=== PATIENT | female | born 1980 | race American Indian/Alaskan Native ===

== ENCOUNTER 2023-06-11 15:17 | Emergency (ER) | payer OTHER ==
[~2023-06-11] VITALS: Ht 162.6 cm; Wt 54.4 kg
[2023-06-11] MEDS ORDERED: OLANZAPINE 5 MG TABLET PO ONE ×2 (16:15→17:45)
[2023-06-11] MEDS ORDERED: OLANZAPINE 5 MG TABLET ONE ×2 (16:20→17:40)
[2023-06-11] MEDS ORDERED: OLAN5TAB3 PO (16:22)
[2023-06-11 16:29] LABS: BASOPHILS # (AUTO) 0.1 K/UL (0.0-0.2); BASOPHILS % (AUTO) 0.8 % (0.0-2.0); EOSINOPHILS % (AUTO) 0.4 % (0.0-7.0); HEMATOCRIT 37.2 % (31.2-41.9); HEMOGLOBIN 12.5 g/dL (10.9-14.3); LYMPHOCYTES # (AUTO) 2.2 K/uL (0.8-4.8); MEAN CORPUSCULAR HEMOGLOBIN 30.4 uug (24.7-32.8); MEAN CORPUSCULAR HGB CONC 34 g/dL (32.3-35.6); MEAN CORPUSCULAR VOLUME 90.9 fL (75.5-95.3); MONOCYTES # (AUTO) 0.4 K/uL (0.1-1.30); MONOCYTES % (AUTO) 4.9 % (0.0-11.0); NEUTROPHILS # (AUTO) 4.8 K/uL (1.8-8.9); NEUTROPHILS % (AUTO) 64.9 % (38.5-71.5); PLATELET COUNT (AUTO) 345 K/uL (179-408); RED CELL DISTRIBUTION WIDTH 14.4 % (12.3-17.7); WHITE BLOOD COUNT (AUTO) 7.5 K/uL (3.8-11.8)
[2023-06-11 16:38] LABS: CALCIUM 8.6 mg/dL (8.5-10.1); CARBON DIOXIDE 28 mmol/L (21-32); CHLORIDE 104 mmol/L (98-107); GLUCOSE 91 mg/dL (74-106); POTASSIUM 4.1 mmol/L (3.5-5.1); SODIUM SERUM 142 mmol/L (136-145); UREA NITROGEN, BLOOD 12 mg/dL (7-18)
[2023-06-11 16:39] LABS: *BILIRUBIN,URIN NEGATIVE (NEGATIVE); *BLOOD, URINE 1+ (NEGATIVE); *CLARITY,URINE CLOUDY (CLEAR); *COLOR,URINE YELLOW (YELLOW); *KETONES,URINE NEGATIVE (NEGATIVE); *PROTEIN,URINE NEGATIVE (NEGATIVE); *UROBILINOGEN,URINE 0.2 E.U./dl (NORMAL); LEUKOCYTE ESTERASE ,URINE NEGATIVE (NEGATIVE); NITRITE, URINE NEGATIVE (NEGATIVE); UGLUCOSE NEGATIVE (NEGATIVE)
[2023-06-11 16:42] LABS: ACETAMINOPHEN < 2.0 ug/mL (10-30)
[2023-06-11 16:44] LABS: ETHANOL < 3 MG/DL (0-10)
[2023-06-11 16:47] LABS: DIFFERENTIAL COMMENT 1
[2023-06-11 17:01] LABS: *AMPHETAMINE, URINE NEGATIVE (NEGATIVE); *BARBITURATE, URINE NEGATIVE (NEGATIVE); *BENZODIAZEPINE, URINE NEGATIVE (NEGATIVE); *CANNABINOID, URINE POSITIVE (NEGATIVE); *COCCAINE, URINE NEGATIVE (NEGATIVE); *OPIATE, URINE NEGATIVE (NEGATIVE); *PHENCYCLIDINE SCREEN,URINE NEGATIVE (NEGATIVE)
[2023-06-11 17:08] LABS: ALANINE AMINOTRANSFERASE 15 U/L (14-59); ALBUMIN 3.8 g/dL (3.4-5.0); ALKALINE PHOSPHATASE 63 U/L (50-136); ASPARTATE AMINOTRANSFERASE 10 U/L (15-37); BILIRUBIN,TOTAL 0.2 mg/dL (0.2-1.0); MAGNESIUM 2.1 mg/dL (1.8-2.4); TOTAL PROTEIN, SERUM 7.1 g/dL (6.4-8.2)
[2023-06-11 17:10] LABS: BILIRUBIN,DIRECT < 0.1 mg/dL (0.0-0.2)
[2023-06-11] MEDS ORDERED: MECO10006 IM (17:23)
[2023-06-11] MEDS ORDERED: SYRI-29 MC (17:23)
[2023-06-11 17:28] LABS: FENTANYL, URINE NEGATIVE (NEGATIVE)
[2023-06-11] MEDS ORDERED: CYANOCOBALAMIN 1000 MCG/ML VIAL ONE (17:28)
[2023-06-11] MEDS ORDERED: CYANOCOBALAMIN 1000 MCG/ML VIAL IM ONE (17:30)
[2023-06-11 18:11] VITALS: BP 130/70; TEMP 98; O2SAT 99
== END 2023-06-11 18:02 | disposition home or self-care (01) ==
LOC: ER 15:19
DX: F41.9 Anxiety disorder, unspecified (principal); E53.8 Deficiency of other specified B group vitamins; F20.9 Schizophrenia, unspecified; F31.9 Bipolar disorder, unspecified; Z79.899 Other long term (current) drug therapy
CPT/HCPCS: 80076; 80048; 81001; 82607; 83735; 85025; 36415; 99283; 96372; 80299; 80320; 80307; J3420; A4606; A4663; G0480

== ENCOUNTER 2023-07-03 04:04 | Emergency (ER) | payer OTHER ==
[~2023-07-03] VITALS: Ht 167.6 cm; Wt 54.4 kg
[~2023-07-03 04:04] MED LIST: MECO10006 IM; OLAN5TAB3 PO; SYRI-29 MC
[2023-07-03] MEDS ORDERED: ONDANSETRON HCL 4 MG TABLET ONE (04:21)
[2023-07-03] MEDS ORDERED: ONDA4TAB5 PO (04:23)
[2023-07-03] MEDS: ONDANSETRON ODT 4 MG TAB.RAPDIS SL ONE (04:27)
[2023-07-03 04:38] VITALS: BP 119/70; O2SAT 100
== END 2023-07-03 04:39 | disposition home or self-care (01) ==
LOC: ER 04:07
DX: F10.129 Alcohol abuse with intoxication, unspecified (principal); F31.9 Bipolar disorder, unspecified; F20.9 Schizophrenia, unspecified; Z79.899 Other long term (current) drug therapy; Y90.9 Presence of alcohol in blood, level not specified
CPT/HCPCS: A4606; A4663; Q0162

== ENCOUNTER 2023-09-12 16:28 | Emergency (ER) | payer OTHER ==
[~2023-09-12] VITALS: Ht 162.6 cm; Wt 56.7 kg
[~2023-09-12 16:28] MED LIST changes: +ONDA4TAB5 PO
[2023-09-12] MEDS ORDERED: NALO4SPR BNOSTRILS (17:06)
[2023-09-12 17:14] VITALS: BP 139/88; O2SAT 98
== END 2023-09-12 17:15 | disposition home or self-care (01) ==
LOC: ER 16:32
DX: F41.9 Anxiety disorder, unspecified (principal); T43.615A Adverse effect of caffeine, initial encounter; F20.9 Schizophrenia, unspecified; F15.129 Other stimulant abuse with intoxication, unspecified; F31.9 Bipolar disorder, unspecified; Z79.899 Other long term (current) drug therapy; Y92.89 Other specified places as the place of occurrence of the external cause
CPT/HCPCS: A4606; A4663